=== PATIENT | male | born 1970 | race Caucasian/White ===

== ENCOUNTER 2020-05-12 04:22 | Emergency (ER) | payer MEDICAID ==
[~2020-05-12] VITALS: Ht 167.6 cm; Wt 109.0 kg
[2020-05-12] MEDS ORDERED: SODIUM CHLORIDE 0.9% 1,000 ML IV ONE (04:30)
[2020-05-12] MEDS ORDERED: MAGNESIUM/ALUMINUM HYDROXIDE/SIMETHICONE 30ML UDC PO STA (04:30)
[2020-05-12] MEDS ORDERED: KETOROLAC 30MG/ML VIAL IV STA (04:30)
[2020-05-12 04:58] LABS: EOSINOPHILS % 1.5 % (0.0-5.0); HEMATOCRIT. 45.1 % (42.0-52.0); HEMOGLOBIN. 15.5 g/dL (14.0-18.0); LYMPHOCYTES % 29.1 % (20.0-50.0); MEAN CORPUSCULAR VOLUME 87.4 fL (80.0-94.0); MEAN PLATELET VOLUME 6.8 fl (7.4-10.4); MONOCYTES % 12.2 % (2.0-8.0); NEUTROPHILS % 56.2 % (40.0-76.0); PLATELET 225 x1000/uL (130-400); RED BLOOD CELL COUNT 5.15 mill/uL (4.7-6.1); RED CELL DISTRIBUTION WIDTH 16.8 % (11.6-14.6)
[2020-05-12 05:05] LABS: CHLORIDE 103 mEq/L (98-107)
[2020-05-12 05:09] LABS: ETHANOL BLOOD 198 mg/dL
[2020-05-12 05:22] LABS: CLARITY URINE CLEAR (CLEAR); COLOR URINE YELLOW (YELLOW); KETONES URINE NEGATIVE (NEGATIVE); LEUKOCYTE ESTERASE URINE NEGATIVE (NEGATIVE); NITRITE URINE NEGATIVE (NEGATIVE); OCCULT BLOOD URINE NEGATIVE (NEGATIVE); PROTEIN URINE 3+ (NEGATIVE); SPECIFIC GRAVITY URINE 1.021 (1.005-1.030)
[2020-05-12 05:30] LABS: *AMPHETAMINES SCREEN URINE NEGATIVE (NEGATIVE); *BARBITURATES SCREEN URINE NEGATIVE (NEGATIVE)
[2020-05-12 05:31] LABS: *BENZODIAZEPINES SCREEN URINE PRESUMTIVE POSITIVE (NEGATIVE); *COCAINE SCREEN URINE NEGATIVE (NEGATIVE); CANNABINOID URINE SCREEN NEGATIVE (NEGATIVE); METHADONE URINE SCREEN NEGATIVE (NEGATIVE); OPIATES URINE SCREEN NEGATIVE (NEGATIVE); PHENCYCLIDINE URINE SCREEN NEGATIVE (NEGATIVE)
[2020-05-12 06:58] VITALS: BP 129/80
== END 2020-05-12 07:12 | disposition home or self-care (01) ==
LOC: ER 04:40
DX: R10.13 Epigastric pain (principal); F10.129 Alcohol abuse with intoxication, unspecified; Y90.6 Blood alcohol level of 120-199 mg/100 ml
CPT/HCPCS: 36415; 74176; 80053; 80305; 80320; 81003; 83690; 85025; 96374; 99284; J1885; J7030; G0480

== ENCOUNTER 2020-05-13 04:28 | Emergency (ER) | payer MEDICAID ==
[~2020-05-13] VITALS: Ht 157.5 cm; Wt 91.0 kg
[2020-05-13 04:30] VITALS: BP 128/71
[2020-05-13] MEDS ORDERED: IBUPROFEN 600MG TABLET PO STA (04:30)
[2020-05-13 04:44] LABS: BASOPHILS % 1.2 % (0.0-2.0); EOSINOPHILS % 1.2 % (0.0-5.0); HEMATOCRIT. 41.3 % (42.0-52.0); HEMOGLOBIN. 14.2 g/dL (14.0-18.0); LYMPHOCYTES % 20.2 % (20.0-50.0); MEAN CORPUSCULAR HEMOGLOBIN 30.3 pg (28.0-32.0); MEAN CORPUSCULAR VOLUME 87.8 fL (80.0-94.0); MEAN PLATELET VOLUME 6.6 fl (7.4-10.4); MONOCYTES % 9.7 % (2.0-8.0); NEUTROPHILS % 67.7 % (40.0-76.0); PLATELET 214 x1000/uL (130-400); RED CELL DISTRIBUTION WIDTH 17.1 % (11.6-14.6)
[2020-05-13] MEDS ORDERED: CHLORDIAZEPOXIDE 25MG CAPSULE PO ONE (04:45)
[2020-05-13 04:50] LABS: CHLORIDE 105 mEq/L (98-107)
[2020-05-13 04:54] LABS: ETHANOL BLOOD 110 mg/dL
[2020-05-13] MEDS ORDERED: ONDANSETRON 4MG ODT PO ONE (06:00)
== END 2020-05-13 06:01 | disposition home or self-care (01) ==
LOC: ER 04:28
DX: R10.13 Epigastric pain (principal); F10.129 Alcohol abuse with intoxication, unspecified; Y90.5 Blood alcohol level of 100-119 mg/100 ml
CPT/HCPCS: 36415; 80053; 80320; 85025; 99283; G0480

== ENCOUNTER 2020-05-17 21:12 | Inpatient (IN) | payer MEDICAID ==
[~2020-05-17] VITALS: Ht 172.7 cm; Wt 99.8 kg
[2020-05-17 23:22] LABS: CHLORIDE 99 mEq/L (98-107)
[2020-05-17 23:26] LABS: ETHANOL BLOOD 205 mg/dL
[2020-05-17 23:33] LABS: BASOPHILS % 1.1 % (0.0-2.0); EOSINOPHILS % 0.4 % (0.0-5.0); HEMOGLOBIN. 15.5 g/dL (14.0-18.0); LYMPHOCYTES % 22.9 % (20.0-50.0); MEAN CORPUSCULAR HEMOGLOBIN 30.9 pg (28.0-32.0); MEAN CORPUSCULAR VOLUME 87.8 fL (80.0-94.0); MEAN PLATELET VOLUME 7.2 fl (7.4-10.4); MONOCYTES % 9.6 % (2.0-8.0); PLATELET 197 x1000/uL (130-400); RED BLOOD CELL COUNT 5.01 mill/uL (4.7-6.1)
[2020-05-17] MEDS ORDERED: KETOROLAC 30MG/ML VIAL IV STA (23:53)
[2020-05-17] MEDS ORDERED: SODIUM CHLORIDE 0.9% 1,000 ML IV ONE (23:53)
[2020-05-18] MEDS ORDERED: FOLIC ACID 1 MG, THIAMINE HCL 100 MG, MVI, ADULT NO.1 10 ML in DEXTROSE 5% WATER 1,000 ML IV ONE ×4
[2020-05-18] MEDS ORDERED: CHLORDIAZEPOXIDE 25MG CAPSULE PO ONE (00:30)
[2020-05-18] MEDS ORDERED: POTASSIUM CHLORIDE INJ 40 MEQ in DEXT 5% WATER 500 ML IV ONE (01:15)
[2020-05-18 05:35] VITALS: BP 160/96
[2020-05-18 08:00] VITALS: BP 139/81
[2020-05-18] MEDS ORDERED: ACETAMINOPHEN 325MG TABLET PO PRN (08:30)
[2020-05-18] MEDS ORDERED: DIPHENHYDRAMINE 50MG/ML VIAL IV PRN (08:30)
[2020-05-18] MEDS ORDERED: CLONIDINE 0.1MG TABLET PO PRN (08:30)
[2020-05-18] MEDS ORDERED: ONDANSETRON HCL 4MG/2ML INJ IV PRN (08:30)
[2020-05-18] MEDS ORDERED: MORPHINE SULFATE 2 MG/ML CPJ (NOT FOR IM USE) IV PRN (08:30)
[2020-05-18] MEDS: SODIUM CHLORIDE 0.9% 1,000 ML IV SCH ×2 (09:48→23:48)
[2020-05-18 11:23] LABS: PHOSPHORUS 2.4 mg/dL (2.5-4.9)
[2020-05-18] MEDS ORDERED: DEXTROSE 50% WATER 50ML SYRINGE IV PRN (11:45)
[2020-05-18] MEDS: BLOOD SUGAR DIAGNOSTIC STRIP TEST SCH ×3 (12:22→21:33)
[2020-05-18] MEDS: INSULIN LISPRO 100 UNITS/ML SUBCUT SCH ×3 (12:23→21:00)
[2020-05-18] MEDS ORDERED: MAGNESIUM 2 G PREMIX 50 ML IV SCH (13:00)
[2020-05-18] MEDS: CHLORDIAZEPOXIDE 25MG CAPSULE PO SCH ×2 (13:40→21:33)
[2020-05-18] MEDS: LORAZEPAM 2MG/ML CPJ IV PRN (14:02)
[2020-05-18 16:00] VITALS: BP 131/84
[2020-05-18 20:00] VITALS: BP 147/85
[2020-05-19] VITALS: BP 131/80
[2020-05-19] MEDS: LORAZEPAM 2MG/ML CPJ IV PRN ×3 (00:01→21:02)
[2020-05-19 04:00] VITALS: BP 121/71
[2020-05-19] MEDS: CHLORDIAZEPOXIDE 25MG CAPSULE PO SCH ×3 (05:25→21:02)
[2020-05-19] MEDS: SODIUM CHLORIDE 0.9% 1,000 ML IV SCH ×2 (05:44→15:19)
[2020-05-19] MEDS: BLOOD SUGAR DIAGNOSTIC STRIP TEST SCH ×4 (05:51→21:02)
[2020-05-19] MEDS: INSULIN LISPRO 100 UNITS/ML SUBCUT SCH ×4 (05:52→21:00)
[2020-05-19 06:28] LABS: BASOPHILS % 0.8 % (0.0-2.0); EOSINOPHILS % 3.3 % (0.0-5.0); LYMPHOCYTES % 16.1 % (20.0-50.0); MEAN CORPUSCULAR HEMOGLOBIN 30.9 pg (28.0-32.0); MEAN CORPUSCULAR VOLUME 88.9 fL (80.0-94.0); MEAN PLATELET VOLUME 7.2 fl (7.4-10.4); MONOCYTES % 9.9 % (2.0-8.0); NEUTROPHILS % 69.9 % (40.0-76.0); PLATELET 155 x1000/uL (130-400); RED BLOOD CELL COUNT 4.83 mill/uL (4.7-6.1); RED CELL DISTRIBUTION WIDTH 18.5 % (11.6-14.6)
[2020-05-19 06:31] LABS: CHLORIDE 101 mEq/L (98-107)
[2020-05-19 06:39] LABS: AMYLASE 99 IU/L (25-115)
[2020-05-19 06:41] LABS: LDL CHOLESTEROL 138 mg/dL (5-100)
[2020-05-19 06:43] LABS: HDL CHOLESTEROL 57 mg/dL (40-59)
[2020-05-19 07:14] LABS: HEPATITIS B SURFACE ANTIGEN NEGATIVE
[2020-05-19 07:44] LABS: HEPATITIS A AB IGM NEGATIVE (NEGATIVE)
[2020-05-19 08:00] VITALS: BP 129/80
[2020-05-19] MEDS ORDERED: POTASSIUM CHLORIDE INJ 40 MEQ in DEXT 5% WATER 250 ML IV ONE (09:00)
[2020-05-19] MEDS ORDERED: POTASSIUM CHLORIDE INJ 40 MEQ in DEXT 5% WATER 500 ML IV NR (10:30)
[2020-05-19 12:00] VITALS: BP 130/78
[2020-05-19 16:00] VITALS: BP 132/82
[2020-05-19 20:00] VITALS: BP 128/81
[2020-05-20] VITALS: BP 133/84
[2020-05-20] MEDS: SODIUM CHLORIDE 0.9% 1,000 ML IV SCH ×3 (01:14→21:23)
[2020-05-20 04:00] VITALS: BP 120/82
[2020-05-20] MEDS: CHLORDIAZEPOXIDE 25MG CAPSULE PO SCH ×3 (06:13→21:23)
[2020-05-20] MEDS: BLOOD SUGAR DIAGNOSTIC STRIP TEST SCH ×4 (07:25→21:23)
[2020-05-20] MEDS: INSULIN LISPRO 100 UNITS/ML SUBCUT SCH ×4 (07:50→21:00)
[2020-05-20 08:00] VITALS: BP 121/73
[2020-05-20 12:00] VITALS: BP 108/72
[2020-05-20 16:00] VITALS: BP 116/69
[2020-05-20 20:00] VITALS: BP 107/81
[2020-05-21] VITALS: BP 110/85
[2020-05-21 04:00] VITALS: BP 117/44
[2020-05-21] MEDS: CHLORDIAZEPOXIDE 25MG CAPSULE PO SCH ×3 (05:55→21:21)
[2020-05-21] MEDS: BLOOD SUGAR DIAGNOSTIC STRIP TEST SCH ×2 (05:55→12:08)
[2020-05-21] MEDS: SODIUM CHLORIDE 0.9% 1,000 ML IV SCH ×2 (05:56→17:03)
[2020-05-21] MEDS: INSULIN LISPRO 100 UNITS/ML SUBCUT SCH ×2 (06:03→12:08)
[2020-05-21 07:11] LABS: AMYLASE 97 IU/L (25-115)
[2020-05-21 08:00] VITALS: BP 116/71
[2020-05-21 12:00] VITALS: BP 102/57
[2020-05-21] MEDS ORDERED: POTASSIUM CHLORIDE 20MEQ TABLET SR PO NR (12:00)
[2020-05-21] MEDS ORDERED: MAGNESIUM 2 G PREMIX 50 ML IV NR (13:00)
[2020-05-21 16:00] VITALS: BP 109/67
[2020-05-21 20:00] VITALS: BP 110/70
[2020-05-21 20:40] LABS: CHLORIDE 103 mEq/L (98-107)
[2020-05-22] VITALS: BP 119/76
[2020-05-22] MEDS: SODIUM CHLORIDE 0.9% 1,000 ML IV SCH ×2 (02:42→13:06)
[2020-05-22 04:00] VITALS: BP 108/78
[2020-05-22] MEDS: CHLORDIAZEPOXIDE 25MG CAPSULE PO SCH ×2 (05:48→13:06)
[2020-05-22 06:25] LABS: HEMATOCRIT 44.3 % (42.0-52.0); HEMOGLOBIN 15.2 g/dL (14.0-18.0); MEAN CORPUSCULAR HEMOGLOBIN 31.2 pg (28.0-32.0); MEAN CORPUSCULAR VOLUME 90.8 fL (80.0-94.0); PLATELET 183 x1000/uL (130-400); RED BLOOD CELL COUNT 4.87 mill/uL (4.7-6.1); RED CELL DISTRIBUTION WIDTH 18.9 % (11.6-14.6)
[2020-05-22 06:55] LABS: CHLORIDE 105 mEq/L (98-107)
[2020-05-22 08:00] VITALS: BP 86/57
[2020-05-22 12:00] VITALS: BP 131/78
[2020-05-22] MEDS ORDERED: POTASSIUM CHLORIDE 20MEQ TABLET SR PO SCH (13:15)
[2020-05-22] MEDS ORDERED: MAGNESIUM 2 G PREMIX 50 ML IV SCH (15:00)
[2020-05-22 16:00] VITALS: BP 106/66
[2020-05-22] MEDS ORDERED: L25 PO (18:50)
[2020-05-22] MEDS ORDERED: L25 MT (19:29)
== END 2020-05-22 19:30 | disposition home or self-care (01) | DRG 282 ==
LOC: ER 21:12 → 6EST 05-18 01:00 → ENRESERV 05-18 03:21 → ER 05-18 04:59
PROVIDERS: ADMIT Internal Medicine; ATTEND Internal Medicine
DX: K85.20 Alcohol induced acute pancreatitis without necrosis or infection (principal); F10.231 Alcohol dependence with withdrawal delirium; G31.2 Degeneration of nervous system due to alcohol; E83.42 Hypomagnesemia; E11.65 Type 2 diabetes mellitus with hyperglycemia; K70.9 Alcoholic liver disease, unspecified; K57.90 Diverticulosis of intestine, part unspecified, without perforation or abscess without bleeding; E87.6 Hypokalemia; F17.200 Nicotine dependence, unspecified, uncomplicated; Y90.7 Blood alcohol level of 200-239 mg/100 ml; E78.00 Pure hypercholesterolemia, unspecified
CPT/HCPCS: 36415; 80048; 80053; 80061; 80307; 80320; 80329; 82150; 82962; 83036; 83735; 84075; 84100; 84132; 84443; 84450; 84460; 85025; 85027; 86705; 86709; 86803; 87340; 93005; 93970; 99285; J1885; J2060; J3411; J3475; J3480; J3490; J7030; J7060; J7070; G0480

== ENCOUNTER 2020-06-26 10:13 | Emergency (ER) | payer MEDICAID ==
[~2020-06-26] VITALS: Ht 165.1 cm; Wt 109.0 kg
[2020-06-26] MEDS ORDERED: FOLIC ACID 1 MG, THIAMINE HCL 100 MG, MVI, ADULT NO.1 10 ML in DEXTROSE 5% WATER 1,000 ML IV ONE ×4 (10:30)
[2020-06-26] MEDS ORDERED: CHLORDIAZEPOXIDE 25MG CAPSULE PO ONE (10:45)
[2020-06-26 11:09] LABS: BASOPHILS % 0.7 % (0.0-2.0); EOSINOPHILS % 1.4 % (0.0-5.0); HEMATOCRIT. 44.2 % (42.0-52.0); LYMPHOCYTES % 17.1 % (20.0-50.0); MEAN CORPUSCULAR HEMOGLOBIN 30.2 pg (28.0-32.0); MEAN PLATELET VOLUME 7.7 fl (7.4-10.4); MONOCYTES % 6.8 % (2.0-8.0); PLATELET 256 x1000/uL (130-400); RED BLOOD CELL COUNT 4.97 mill/uL (4.7-6.1); RED CELL DISTRIBUTION WIDTH 16.4 % (11.6-14.6)
[2020-06-26 11:19] LABS: CHLORIDE 102 mEq/L (98-107)
[2020-06-26 11:24] LABS: ETHANOL BLOOD < 10 mg/dL
[2020-06-26 13:00] LABS: CLARITY URINE CLEAR (CLEAR); COLOR URINE YELLOW (YELLOW); KETONES URINE NEGATIVE (NEGATIVE); LEUKOCYTE ESTERASE URINE NEGATIVE (NEGATIVE); NITRITE URINE NEGATIVE (NEGATIVE); OCCULT BLOOD URINE NEGATIVE (NEGATIVE); PROTEIN URINE NEGATIVE (NEGATIVE); SPECIFIC GRAVITY URINE 1.005 (1.005-1.030); UROBILINOGEN URINE 0.2 E.U./dL (0.2-1.0)
[2020-06-26 13:49] LABS: *AMPHETAMINES SCREEN URINE NEGATIVE (NEGATIVE); *BARBITURATES SCREEN URINE NEGATIVE (NEGATIVE); OPIATES URINE SCREEN NEGATIVE (NEGATIVE)
[2020-06-26 13:50] LABS: CANNABINOID URINE SCREEN NEGATIVE (NEGATIVE); PHENCYCLIDINE URINE SCREEN NEGATIVE (NEGATIVE)
[2020-06-26 13:53] LABS: *BENZODIAZEPINES SCREEN URINE NEGATIVE (NEGATIVE); *COCAINE SCREEN URINE NEGATIVE (NEGATIVE)
[2020-06-26 13:54] VITALS: BP 112/59
[2020-06-26 13:57] LABS: METHADONE URINE SCREEN NEGATIVE (NEGATIVE)
== END 2020-06-26 13:59 | disposition home or self-care (01) ==
LOC: ER 10:13
DX: F10.239 Alcohol dependence with withdrawal, unspecified (principal); Y90.0 Blood alcohol level of less than 20 mg/100 ml
CPT/HCPCS: 36415; 80053; 80305; 80320; 81003; 83690; 85025; 93005; 96365; 96366; 99285; J3411; J3490; J7070; G0480